=== PATIENT | female | born 1945 | race Caucasian/White ===

== ENCOUNTER → 2016-11-17 | Day surgery (SDC) | payer MEDICARE, OTHER ==
[2016-11-17 10:36] LABS: HCT 37.2 % (37.0-47.0); HGB 12.4 g/dl (12.5-16.0); MCH 28.9 pg (25.0-31.0); MCHC 33.3 g/dL (32.0-36.0); MCV 86.7 fL (78.0-100.0); MPV 11.2 fL (6.0-9.5); RBC 4.29 M/uL (4.20-5.40); RDW 14.2 % (11.5-14.0); WBC 6.6 K/uL (4.0-10.5)
[2016-11-17 11:04] LABS: ALBUMIN 4.6 g/dL (3.4-4.8); BILIRUBIN - TOTAL 0.3 mg/dL (0.1-1.0); CREATININE 0.6 mg/dL (0.5-1.0); GLOBULIN (CALCULATION) 2.8 g/dL (2.2-4.2); POTASSIUM 4.1 mmol/L (3.5-5.1); TOTAL PROTEIN 7.4 g/dL (6.4-8.3)
[2016-11-17 13:03] LABS: INR 2.97 (0.9-1.2); PROTHROMBIN TIME 30.2 SECONDS (11.7-14.0)
== END | disposition home or self-care (01) ==
LOC: FAS 08:46
PROVIDERS: Surgery
DX: K29.50 Unspecified chronic gastritis without bleeding (principal); E11.9 Type 2 diabetes mellitus without complications; E03.9 Hypothyroidism, unspecified; E78.00 Pure hypercholesterolemia, unspecified; E78.5 Hyperlipidemia, unspecified; I10 Essential (primary) hypertension; I25.10 Atherosclerotic heart disease of native coronary artery without angina pectoris; I48.0 Paroxysmal atrial fibrillation; M19.90 Unspecified osteoarthritis, unspecified site; M81.0 Age-related osteoporosis without current pathological fracture; Z88.5 Allergy status to narcotic agent; Z87.440 Personal history of urinary (tract) infections; Z95.2 Presence of prosthetic heart valve; Z90.89 Acquired absence of other organs; Z96.651 Presence of right artificial knee joint; Z95.1 Presence of aortocoronary bypass graft; Z90.710 Acquired absence of both cervix and uterus; Z80.3 Family history of malignant neoplasm of breast; Z79.899 Other long term (current) drug therapy
CPT/HCPCS: 36415; 80053; 85610; 88305; J1956; J2704

== ENCOUNTER → 2017-02-02 | Day surgery (SDC) | payer MEDICARE, OTHER ==
[~2017-02-02] VITALS: Ht 170.2 cm; Wt 107.2 kg
[2017-02-02 09:05] LABS: HCT 35.3 % (37.0-47.0); HGB 11.4 g/dl (12.5-16.0); MCH 27.3 pg (25.0-31.0); MCHC 32.3 g/dL (32.0-36.0); MCV 84.7 fL (78.0-100.0); MPV 11.5 fL (6.0-9.5); RBC 4.17 M/uL (4.20-5.40); RDW 15.1 % (11.5-14.0); WBC 5.2 K/uL (4.0-10.5)
[2017-02-02 09:52] LABS: ALBUMIN 4.3 g/dL (3.4-4.8); BILIRUBIN - TOTAL 0.3 mg/dL (0.1-1.0); CREATININE 0.6 mg/dL (0.5-1.0); POTASSIUM 4.2 mmol/L (3.5-5.1); TOTAL PROTEIN 7.3 g/dL (6.4-8.3)
== END | disposition home or self-care (01) ==
LOC: FAS 01-19 09:00
PROVIDERS: Surgery
DX: D64.9 Anemia, unspecified (principal); I10 Essential (primary) hypertension; I25.10 Atherosclerotic heart disease of native coronary artery without angina pectoris; E11.9 Type 2 diabetes mellitus without complications; E03.9 Hypothyroidism, unspecified; E78.5 Hyperlipidemia, unspecified; N39.0 Urinary tract infection, site not specified; M19.90 Unspecified osteoarthritis, unspecified site; G60.0 Hereditary motor and sensory neuropathy; K21.9 Gastro-esophageal reflux disease without esophagitis; M81.0 Age-related osteoporosis without current pathological fracture; Z88.5 Allergy status to narcotic agent; Z88.8 Allergy status to other drugs, medicaments and biological substances; Z90.710 Acquired absence of both cervix and uterus; Z90.89 Acquired absence of other organs; Z96.651 Presence of right artificial knee joint; Z98.84 Bariatric surgery status; Z98.890 Other specified postprocedural states; Z85.828 Personal history of other malignant neoplasm of skin; Z95.2 Presence of prosthetic heart valve; Z95.1 Presence of aortocoronary bypass graft; Z80.3 Family history of malignant neoplasm of breast; Z79.82 Long term (current) use of aspirin; Z79.84 Long term (current) use of oral hypoglycemic drugs; Z79.01 Long term (current) use of anticoagulants; Z79.2 Long term (current) use of antibiotics; Z79.899 Other long term (current) drug therapy
CPT/HCPCS: 36415; 80053; 88305; 88311; 88313; J2704